=== PATIENT | male | born 1945 | race Caucasian/White ===

== ENCOUNTER 2024-03-19 09:26 | Day surgery (SDC) | payer BC ==
[2024-03-13 16:57] VITALS: BMI 29.9
[2024-03-19] MEDS ORDERED: CIPROFLOXACIN 0.3% EYE DROPS 5 ML BOTTLE ONE (09:33)
[2024-03-19] MEDS ORDERED: PHENYLEPHRINE 2.5% OPTHALMIC DROP 2ML BOTTLE ONE (09:33)
[2024-03-19] MEDS ORDERED: CYCLOPENTOLATE 2% OPHTH SOLN 2 ML BOTTLE ONE (09:33)
[2024-03-19] MEDS ORDERED: TROPICAMIDE 1% OPHTH SOLN 15 ML BOTTLE ONE (09:33)
[2024-03-19] MEDS: CIPROFLOXACIN 0.3% EYE DROPS 5 ML BOTTLE OD ONE ×3 (09:45→09:55)
[2024-03-19] MEDS: TROPICAMIDE 1% OPHTH SOLN 15 ML BOTTLE OD ONE ×3 (09:45→09:55)
[2024-03-19] MEDS: CYCLOPENTOLATE 2% OPHTH SOLN 2 ML BOTTLE OD ONE ×3 (09:45→09:55)
[2024-03-19] MEDS: PHENYLEPHRINE 2.5% OPHTH SOLN 15 ML BOTTLE OD ONE ×3 (09:45→09:55)
[2024-03-19 09:58] VITALS: RESP 16
[2024-03-19] MEDS ORDERED: MIDAZOLAM HCL 2 MG/2 ML SINGLE DOSE VIAL ONE ×2 (10:13→11:31)
[2024-03-19] MEDS ORDERED: EPINEPHrine/PF 1 MG/1 ML (1:1,000) AMPULE ONE (10:42)
[2024-03-19] MEDS ORDERED: LIDOCAINE 1% P/F 10 MG/ML VIAL ONE (10:42)
[2024-03-19] MEDS ORDERED: NEO/POLYMYX B SULF/DEXAMETH OPHTHALMIC 5ML BOTTLE ONE (10:43)
[2024-03-19] MEDS ORDERED: TETRACAINE 0.5% OPHTH SOLN 2 ML BOTTLE ONE (10:43)
[2024-03-19] MEDS ORDERED: BSS (NA/CA/MG/K) BALANCED SALT SOLUTION OPHTH SOLN 15 ML BOTTLE ONE (10:43)
[2024-03-19] MEDS ORDERED: CARBACHOL 0.01% INTRA-OCULAR 1.5 ML VIAL ONE (10:43)
[2024-03-19 12:10] VITALS: TEMP 97.6
[2024-03-19 12:13] VITALS: BP 144/86; PULSE 70
== END 2024-03-19 12:21 | disposition home or self-care (01) ==
LOC: FASU 09:26
PROVIDERS: ATTEND Ophthalmology
PROC: 08RJ3JZ Replacement of Right Lens with Synthetic Substitute, Percutaneous Approach (ICD-10-PCS; principal; 2024-03-19 11:33)
DX: H26.8 Other specified cataract (principal)
CPT/HCPCS: 66984; V2632

== ENCOUNTER 2024-05-07 09:58 | Day surgery (SDC) | payer BC ==
[2024-05-05 11:36] VITALS: BMI 29.9
[2024-05-07] MEDS ORDERED: MIDAZOLAM HCL 2 MG/2 ML SINGLE DOSE VIAL ONE (10:09)
[2024-05-07] MEDS: PHENYLEPHRINE 2.5% OPTHALMIC DROP 2ML BOTTLE ONE (10:50)
[2024-05-07] MEDS: CYCLOPENTOLATE 2% OPHTH SOLN 2 ML BOTTLE ONE (10:50)
[2024-05-07] MEDS: CIPROFLOXACIN 0.3% EYE DROPS 5 ML BOTTLE ONE (10:50)
[2024-05-07] MEDS: TROPICAMIDE 1% OPHTH SOLN 15 ML BOTTLE ONE (10:50)
[2024-05-07 10:55] VITALS: TEMP 97.7
[2024-05-07] MEDS ORDERED: LIDOCAINE 1% P/F 10 MG/ML VIAL ONE (10:56)
[2024-05-07] MEDS ORDERED: CARBACHOL 0.01% INTRA-OCULAR 1.5 ML VIAL ONE (10:56)
[2024-05-07] MEDS ORDERED: TETRACAINE 0.5% OPHTH SOLN 2 ML BOTTLE ONE (10:56)
[2024-05-07] MEDS ORDERED: NEO/POLYMYX B SULF/DEXAMETH OPHTHALMIC 5ML BOTTLE ONE (10:56)
[2024-05-07] MEDS ORDERED: BSS (NA/CA/MG/K) BALANCED SALT SOLUTION OPHTH SOLN 15 ML BOTTLE ONE (10:56)
[2024-05-07 12:47] VITALS: RESP 18
[2024-05-07 14:18] VITALS: BP 124/71; PULSE 65
== END 2024-05-07 13:10 | disposition home or self-care (01) ==
LOC: FASU 09:58
PROVIDERS: ATTEND Ophthalmology
PROC: 08ND3ZZ Release Left Iris, Percutaneous Approach (ICD-10-PCS; 2024-05-07)
PROC: 08RK3JZ Replacement of Left Lens with Synthetic Substitute, Percutaneous Approach (ICD-10-PCS; principal; 2024-05-07 12:22)
DX: H26.8 Other specified cataract (principal); H21.542 Posterior synechiae (iris), left eye
CPT/HCPCS: 65875; 66984; V2632